=== PATIENT | male | born 1955 ===

== ENCOUNTER 2016-10-17 00:46 | Inpatient (IN) | payer MEDICARE, OTHER ==
[2016-10-17] MEDS ORDERED: Sodium Chloride 0.9% 1,000 ML IV STA (01:19)
--- NOTE | 2016-10-17 01:24 | ED PDOC ---
HPI: Abdomen Time Seen by Provider: 10/17/16 01:00 Chief Complaint (Nursing): Abdominal Pain Chief Complaint (Provider): abdominal pain History Per: Patient History/Exam Limitations: no limitations Onset/Duration Of Symptoms: Days (2) Current Symptoms Are (Timing): Still Present Location Of Pain/Discomfort: LUQ, LLQ, Other (left flank) Quality Of Discomfort: "Pain" Associated Symptoms: Constipation. denies: Fever, Chills, Nausea, Vomiting, Diarrhea Additional History Per: Patient Additional Complaint(s): 61 y/o male presents with left-sided abdominal pain x 2 days. Patient notes pain to travel to back. Patient here visiting his sister; was seen by a doctor and prescribed Cipro 500mg without improvement. Associated constipation, abdominal bloating. Denies fever, nausea/vomiting, chest pain, shortness of breath, dysuria, hematuria. Past Medical History Reviewed: Historical Data, Nursing Documentation, Vital Signs Vital Signs: Last Vital Signs Temp 98.7 F 10/17/16 01:15 Pulse 85 10/17/16 01:15 Resp 19 10/17/16 01:15 BP 149/94 H 10/17/16 01:15 Pulse Ox 98 10/17/16 05:36 - Medical History PMH: No Chronic Diseases - Family History Family History: States: Unknown Family Hx - Home Medications Home Medications: Ambulatory Orders Medication Instructions Recorded Ciprofloxacin [Cipro] 500 mg PO BID 10/17/16 - Allergies Allergies/Adverse Reactions: Allergies Allergy/AdvReac Type Severity Reaction Status Date / Time ibuprofen [From Motrin] Allergy RASH Verified 10/17/16 01:16 Review of Systems ROS Statement: Except As Marked, All Systems Reviewed And Found Negative Gastrointestinal: Positive for: Abdominal Pain Musculoskeletal: Positive for: Back Pain Physical Exam - Reviewed Nursing Documentation Reviewed: Yes Vital Signs Reviewed: Yes - Physical Exam Appears: Positive for: Well, Non-toxic, No Acute Distress Head Exam: Positive for: ATRAUMATIC, NORMAL INSPECTION, NORMOCEPHALIC Skin: Positive for: Normal Color Eye Exam: Positive for: Normal appearance ENT: Positive for: Normal ENT Inspection Cardiovascular/Chest: Positive for: Regular Rate, Rhythm Respiratory: Positive for: Normal Breath Sounds Gastrointestinal/Abdominal: Positive for: Bowel Sounds, Soft, Tenderness (luq, llq, left flank), Distended Extremity: Positive for: Normal ROM Neurologic/Psych: Positive for: Alert, Oriented - Laboratory Results Result Diagrams: 10/17/16 01:30 10/17/16 01:30 - ECG ECG: Positive for: Viewed By Me (reviewed by ED attending) ECG Rhythm: Positive for: Sinus Tachycardia (103bpm) O2 Sat by Pulse Oximetry: 98 Pulse Ox Interpretation: Normal - Radiology X-Ray: Viewed By Me X-Ray Interpretation: No Acute Disease - Progress ED Course And Treament: labs, urine, CT abd/pelvis, IV morphine, IV fluids EXAM: CT Abdomen and Pelvis With Intravenous Contrast. CLINICAL HISTORY: 61 years old, male; Pain; Abdominal pain; Localized; Left; Additional info: Left -sided abd/back pain TECHNIQUE: Axial computed tomography images of the abdomen and pelvis with intravenous contrast. This CT exam was performed using one or more of the following dose reduction techniques : automated exposure control, adjustment of the mA and/or kV according to patient size, and/ or use of iterative reconstruction technique. Coronal and sagittal reformatted images were created and reviewed. CONTRAST: 95 mL of [id number] administered intravenously. EXAM DATE/TIME: 10/17/2016 1:32 AM COMPARISON: No relevant prior studies available. FINDINGS: Lower thorax: There is possible thrombus in the right middle and lower lobe pulmonary arteries as seen on series 2 image 1. ABDOMEN: Liver: Findings consistent with fatty infiltration of the liver are identified. Hypodensities in the liver are too small to definitely characterize although statistically they most likely represent benign cysts. Gallbladder and bile ducts: Unremarkable. No calcified stones. No ductal dilation. Pancreas: Unremarkable. No mass. No ductal dilation. Spleen: Unremarkable. No splenomegaly. Adrenals: Unremarkable. No mass. Kidneys and ureters: There is a punctate calcification in the inferior left kidney. There is no hydronephrosis. Stomach and bowel: Colonic diverticula are present although there are no CT findings to suggest diverticulitis. No obstruction. Appendix: The appendix is visualized and appears normal. PELVIS: Bladder: Unremarkable. No mass. Reproductive: Unremarkable as visualized. ABDOMEN and PELVIS: Intraperitoneal space: Unremarkable. No free air. No significant fluid collection. Bones/joints: No acute fracture. No dislocation. Soft tissues: Unremarkable. Vasculature: There is no abdominal aortic aneurysm. Lymph nodes: Unremarkable. No enlarged lymph nodes. IMPRESSION: There is possible thrombus in the right middle and lower lobe pulmonary arteries. Clinical correlation is advised. If there is desire for further evaluation, a nuclear medicine VQ scan could be performed. There is a punctate calcification in the inferior left kidney. There is no hydronephrosis. On re-eval, patient still with pain left back, left flank. Denies shortness of breath, however states when he takes a deep breath it makes the pain worse. Case discussed with ED attending Dr. Krishnan, will place in observation for intractable abdominal pain. D Dimer added. Patient evaluated by Dr. Ibarra, Hospitalist on-call, for admission Disposition - Clinical Impression Clinical Impression: Intractable abdominal pain, Back pain - Patient ED Disposition Is Patient to be Admitted: Yes - Disposition Referrals: Marilyn Ornelas MD [Primary Care Provider] - Disposition Time: 05:33 Condition: FAIR - Pt Status Changed To: Hospital Disposition Of: Observation
[2016-10-17] MEDS ORDERED: Iohexol 240 (50 ml) PO ONE (01:31)
[2016-10-17 01:41] LABS: RBC URINE 1 /hpf (0-3); URINE BILIRUBIN NEGATIVE (NEGATIVE); URINE BLOOD SMALL (NEGATIVE); URINE COLOR YELLOW (YELLOW); URINE GLUCOSE (UA) NEG (Normal); URINE KETONE NEGATIVE (NEGATIVE); URINE LEUKOCYTE ESTERASE NEG Leu/uL (Negative); URINE PROTEIN NEGATIVE (NEGATIVE); URINE UROBILINOGEN 0.2-1.0 mg/dL (0.2-1.0); WBC URINE < 1 /hpf (0-5)
[2016-10-17 01:43] LABS: ALB/GLOB RATIO 1.1 (1.0-2.1); ALKALINE PHOSPHATASE 106 U/L (38-126); AST/SGOT 35 U/L (17-59); BILIRUBIN,TOTAL 0.8 mg/dl (0.2-1.3); BLOOD UREA NITROGEN 16 mg/dl (9-20); CALCIUM 9.4 mg/dL (8.4-10.2); GFR AFRICAN-AMERICAN > 60; GLUCOSE,RANDOM 106 mg/dL (75-110); TOTAL PROTEIN 8.9 G/DL (6.3-8.2)
[2016-10-17 01:44] LABS: ALT/SGPT 25 U/L (21-72)
[2016-10-17 01:47] LABS: CHLORIDE 100 mmol/L (98-107); SODIUM 140 mmol/l (132-148)
[2016-10-17 01:48] LABS: BASO # 0.1 K/uL (0.0-0.2); BASO % 0.6 % (0.0-2.0); EOS # 0.2 K/uL (0.0-0.7); EOS % 2.9 % (0.0-4.0); HEMATOCRIT 41.4 % (35.0-51.0); LYMPH # 2.5 K/uL (1.0-4.3); LYMPH % 31.1 % (20.0-40.0); MEAN CELL VOLUME 90.9 fl (80.0-94.0); MEAN CORPUSCULAR HGB CONC 34.1 g/dL (33.0-37.0); MEAN PLATELET VOLUME 8.7 fl (7.2-11.7); MONO # 0.9 K/uL (0.0-0.8); MONO % 11.6 % (0.0-10.0); NEUT # 4.3 K/uL (1.8-7.0); NEUT % 53.8 % (50.0-75.0); NRBC % 0.1 % (0.0-0.0)
[2016-10-17 01:50] LABS: CARBON DIOXIDE 24 mmol/L (22-30)
[2016-10-17] MEDS ORDERED: Sodium Chloride 0.9% 100 ML ONE (03:07)
[2016-10-17] MEDS ORDERED: Iohexol 300 100 ML IJ ONE (03:07)
[2016-10-17] MEDS ORDERED: Enoxaparin 80 mg Syringe SC STA (05:43)
--- NOTE | 2016-10-17 05:56 | CP.PCM.HP ---
History of Present Illness - History of Present Illness History of Present Illness: CC: L chest/flank pain HPI: 61 y/o male with MHx only of diverticulosis/itis who comes in with several days of L flank/back pain and some intermittent SOB. States the symptoms started acutely. Denies f/c/n/v/d. Denies cough. States that he had some LE pain recently. Never had symptoms like this before. ROS: 14 systems reviewed, negative other than HPI MHx: Diverticulosis/itis in the past SHx: Surgery for diverticulitis, R shoulder surgery Allergies: Ibuprofen Medications: as per med rec Family Hx: Reviewed, none patient can recount Social Hx: Lives with family, no tobacco, occasional EtOH Present on Admission - Present on Admission Any Indicators Present on Admission: No Past Patient History - Past Social History Smoking Status: Unknown If Ever Smoked - PSYCHIATRIC Hx Substance Use: No Meds Allergies/Adverse Reactions: Allergies Allergy/AdvReac Type Severity Reaction Status Date / Time ibuprofen [From Motrin] Allergy RASH Verified 10/17/16 01:16 Physical Exam - Constitutional Appears: No Acute Distress - Head Exam Head Exam: ATRAUMATIC, NORMOCEPHALIC - Eye Exam Eye Exam: EOMI, PERRL - ENT Exam ENT Exam: Mucous Membranes Moist - Neck Exam Neck exam: Positive for: Full Rom - Respiratory Exam Respiratory Exam: Clear to Auscultation Bilateral, NORMAL BREATHING PATTERN - Cardiovascular Exam Cardiovascular Exam: Tachycardia - GI/Abdominal Exam GI & Abdominal Exam: Normal Bowel Sounds, Soft - Extremities Exam Extremities exam: Positive for: full ROM, normal inspection - Neurological Exam Neurological exam: Alert, CN II-XII Intact, Oriented x3 - Psychiatric Exam Psychiatric exam: Normal Affect, Normal Mood - Skin Skin Exam: Dry, Warm Results - Vital Signs Recent Vital Signs: Last Vital Signs Temp 98.2 F 10/17/16 05:40 Pulse 103 H 10/17/16 05:40 Resp 21 10/17/16 05:40 BP 147/94 H 10/17/16 05:40 Pulse Ox 98 10/17/16 05:40 - Labs Result Diagrams: 10/17/16 01:30 10/17/16 01:30 Labs: Laboratory Results - last 24 hr 10/17/16 10/17/16 10/17/16 01:30 04:34 04:47 WBC 8.0 RBC 4.56 Hgb 14.1 Hct 41.4 MCV 90.9 MCH 31.0 MCHC 34.1 RDW 14.0 Plt Count 193 MPV 8.7 Neut % (Auto) 53.8 Lymph % (Auto) 31.1 Alexander % (Auto) 11.6 H Eos % (Auto) 2.9 Baso % (Auto) 0.6 Neut # 4.3 Lymph # 2.5 Alexander # 0.9 H Eos # 0.2 Baso # 0.1 D-Dimer, Quantitative 5.33 H Sodium 140 Potassium 5.0 Chloride 100 Carbon Dioxide 24 Anion Gap 21 H BUN 16 Creatinine 0.9 Est GFR ( Amer) > 60 Est GFR (Non-Af Amer) > 60 Random Glucose 106 Calcium 9.4 Total Bilirubin 0.8 AST 35 ALT 25 Alkaline Phosphatase 106 Total Protein 8.9 H Albumin 4.6 Globulin 4.3 H Albumin/Globulin Ratio 1.1 Lipase 175 Urine Color Yellow Urine Clarity Clear Urine pH 6.0 Ur Specific [place] 1.014 Urine Protein Negative Urine Glucose (UA) Neg Urine Ketones Negative Urine Blood Small Urine Nitrate Negative Urine Bilirubin Negative Urine Urobilinogen 0.2-1.0 Ur Leukocyte Esterase Neg Urine RBC (Auto) 1 Urine Microscopic WBC < 1 - EKG Data EKG comments: Pending - Imaging and Cardiology CT scan - chest Status: Report reviewed by me (Possible L sided PE) Assessment & Plan (1) Back pain Assessment and Plan: 61 y/o male c/o chest/flank pain and SOB with ? of PE on CT and elevated d dimer. -Obs tele -1 dose therapeutic lovenox stat -Pain control -VQ scan in AM Status: Acute (2) Chest pain Status: Acute (3) DVT prophylaxis Status: Acute
--- NOTE | 2016-10-17 10:03 | CP.PCM.PN ---
Subjective - Date & Time of Evaluation Date of Evaluation: 10/17/16 Time of Evaluation: 09:40 - Subjective Subjective: Hospitalist Progress Note (Patient seen at 9:40 AM 10/17/16 ER Bed #17 with the help of INDEM[employer] Interpretor Grace Ramirez) 61 year old male who came into the ER for complaints of several days of Left Flank/Left Back Pain with intermittent SOB that was acute in onset. CT Abdomen/ Pelvis showed possible thrombus in the Right Middle and Right Lower Lobe Pulmonary Arteries, Left Kidney Punctate Lesion, NO hydroneprhosis. D-Dimer was elevated. Patient was given one dose of Lovenox 80 mg SQ at 6 AM. Awaiting performance of V/Q Scan. ROS: pain in left upper to mid back with deep respirations. NO chest pain, NO palpitations, NO SOB/Cough/Wheezing, NO dysyphagia/odynophagia, NO abdominal pain, NO n/v/d/c, NO burning/pain with urination, NO lightheadedness/dizziness, NO headaches, NO new changes in vision/eye pain, NO new changes in hearing/ear pain, NO paresthesias, NO edema HEENT: NCA, EOMI, NO cervical lymphadenopathy, NO thyromegaly, NO pharyngeal erythema/exudate, Oral mucosa and Nasal Turbinates are moist Cardio: NS1 and NS2, NO M/R/G Respiratory: CTA B/L, NO R/R/W pain the left upper and mid back with deep respirations GI: BSx 4, Soft, NT, ND, NO HSM, NO guarding/rebound tenderness Ext: NO edema, Capillary Refill is 2 seconds, Pulses are strong and equal Neuro: CN II through XII are grossly intact Assessment and Plan: 1). Possible PE Please see details in HPI above Awaiting V/Q Scan performance Objective - Vital Signs/Intake and Output Vital Signs (last 24 hours): Temp Pulse Resp BP Pulse Ox 99.0 F 111 H 22 154/96 H 94 L 10/17/16 07:29 10/17/16 07:29 10/17/16 07:29 10/17/16 07:29 10/17/16 07:29 - Medications Medications: Current Medications Morphine Sulfate (Morphine) 2 mg IVP Q6 PRN PRN Reason: Pain, moderate (4-7) Morphine Sulfate (Morphine) 4 mg IVP Q6 PRN PRN Reason: Pain, severe (8-10) Oxycodone/Acetaminophen (Percocet 5/325 Mg Tab) 1 tab PO Q4 PRN PRN Reason: Pain, Mild (1-3) Stop: 10/20/16 05:38
--- NOTE | 2016-10-17 10:48 | CT ---
PROCEDURE: CT Abdomen and Pelvis with contrast HISTORY: left-sided abd/back pain COMPARISON: None. TECHNIQUE: Contrast dose: 95 cc of Omnipaque 300 Radiation dose: Total exam DLP = 808.3 mGy-cm. FINDINGS: LOWER THORAX: There are multiple filling defects in the bilateral lower lobe pulmonary arteries highly suspicious for pulmonary emboli. Patchy opacities and ground-glass opacity seen at the lower portion of the lungs bilaterally. No evidence of pleural effusion. The heart is normal in size. Small hiatus hernia seen. LIVER: The liver is mildly enlarged. There is 9 millimeter low-attenuation nonenhancing lesion at the left liver lobe. There is also th subcentimeter low-attenuation lesion at the inferior aspect of the right liver lobe. Both lesions may represent benign cyst. The portal vein is patent. GALLBLADDER AND BILE DUCTS: Unremarkable. PANCREAS: Unremarkable. No gross lesion or ductal dilatation. SPLEEN: Unremarkable. ADRENALS: Unremarkable. No mass. KIDNEYS AND URETERS: Suspicious for punctate calcification in the right kidney may represent small nonobstructing renal calculi. No evidence of hydronephrosis. VASCULATURE: Unremarkable. No aortic aneurysm. BOWEL: Few scattered colonic diverticulosis are seen without evidence of diverticulitis. No evidence of bowel obstruction. APPENDIX: No evidence of appendicitis. PERITONEUM: Unremarkable. No free fluid. No free air. LYMPH NODES: Unremarkable. No enlarged lymph nodes. BLADDER: Unremarkable. REPRODUCTIVE: Moderately enlarged prostate. BONES: No acute fracture. OTHER FINDINGS: None. IMPRESSION: Findings highly suspicious for pulmonary emboli. Multiple filling defects at the bilateral lower lobes pulmonary arteries. If indicated further assessment by dedicated CTA of the chest is suggested. No CT evidence of cholecystitis pancreatitis or appendicitis. Suspicious for nonobstructing small left renal calculi. No evidence of hydronephrosis or hydroureter. Nonspecific 2 small sub centimeter low-attenuation lesions in the liver. Colonic diverticulosis without evidence of diverticulitis. Moderately enlarged prostate. Preliminary report was submitted by [facility].
--- NOTE | 2016-10-17 10:49 | CP.PCM.HP ---
Past Patient History - Past Social History Smoking Status: Unknown If Ever Smoked - GASTROINTESTINAL Hx Diverticulitis: Yes - PSYCHIATRIC Hx Substance Use: No - SURGICAL HISTORY Hx Surgeries: Yes Meds Allergies/Adverse Reactions: Allergies Allergy/AdvReac Type Severity Reaction Status Date / Time ibuprofen [From Motrin] Allergy RASH Verified 10/17/16 01:16 Physical Exam - Constitutional Appears: Well - Head Exam Head Exam: ATRAUMATIC, NORMAL INSPECTION, NORMOCEPHALIC - Eye Exam Eye Exam: EOMI, Normal appearance, PERRL Pupil Exam: NORMAL ACCOMODATION, PERRL - ENT Exam ENT Exam: Mucous Membranes Moist, Normal Exam - Neck Exam Neck exam: Positive for: Normal Inspection - Respiratory Exam Respiratory Exam: Decreased Breath Sounds - Cardiovascular Exam Cardiovascular Exam: REGULAR RHYTHM, +S1, +S2 - GI/Abdominal Exam GI & Abdominal Exam: Diminished Bowel Sounds, Soft - Rectal Exam Rectal Exam: Deferred Results - Vital Signs Recent Vital Signs: Last Vital Signs Temp 99.0 F 10/17/16 07:29 Pulse 111 H 10/17/16 07:29 Resp 22 10/17/16 07:29 BP 154/96 H 10/17/16 07:29 Pulse Ox 94 L 10/17/16 07:29 - Labs Result Diagrams: 10/17/16 01:30 10/17/16 01:30 Labs: Laboratory Results - last 24 hr 10/17/16 04:47 Lipase 175
--- NOTE | 2016-10-17 13:19 | RAD ---
HISTORY: admit COMPARISON: No prior. FINDINGS: LUNGS: Small opacities at the lung bases left more than right may represent atelectasis. Otherwise the lungs are clear. PLEURA: No significant pleural effusion identified, no pneumothorax apparent. CARDIOVASCULAR: Normal. OSSEOUS STRUCTURES: No significant abnormalities. VISUALIZED UPPER ABDOMEN: Normal. OTHER FINDINGS: None. IMPRESSION: Small bibasilar opacities suspicious for atelectasis. Otherwise no evidence of acute pulmonary disease.
--- NOTE | 2016-10-17 13:27 | NM ---
COMPARISON: Comparison is made to the previous same-day chest x-ray TECHNIQUE: 45.2 mCi technetium 99-m DTPA aerosol 6.1 mCI technetium 99-m MAA administered intravenously. FINDINGS: VENTILATION COMPONENT: Heterogeneous ventilation seen in both lungs. PERFUSION COMPONENT: There are segmental and subsegmental mismatching perfusion defect in the lower lobes particularly. IMPRESSION: Intermediateprobability ventilation perfusion scan for pulmonary embolism. Further assessment by CTA of the chest is suggested.
--- NOTE | 2016-10-17 14:09 | CARD ---
APPROVED REPORT EKG Measurement Heart [id number] <Conclusion> Sinus tachycardia Left axis deviation Cannot rule out Anterior infarct, age undetermined Abnormal ECG
[2016-10-17] MEDS: Enoxaparin 80 mg Syringe SC SCH (18:00)
--- NOTE | 2016-10-17 18:24 | US ---
PROCEDURE: Bilateral lower extremity venous duplex Doppler. HISTORY: Likely PE. Rule Out DVT COMPARISON: None available. TECHNIQUE: Bilateral common femoral, superficial femoral, popliteal and posterior tibial veins were evaluated. Flow was assessed with color Doppler, compressibility, assessment of phasic flow and augmentation response. FINDINGS: COMMON FEMORAL VEIN: Right CFV: Unremarkable. Left CFV: Unremarkable. SUPERFICIAL FEMORAL VEIN: Right SFV: Unremarkable. Left SFV: Unremarkable. POPLITEAL VEIN: Right Popliteal: Noncompressible right popliteal vein with thrombus identified, extending distally to involve the posterior tibial vein. Left Popliteal: Unremarkable. POSTERIOR TIBIAL VEIN: Right PTV: Unremarkable. Left PTV: Unremarkable. OTHER FINDINGS: None. IMPRESSION: Nonocclusive Deep vein thrombosis evident in the right popliteal and posterior tibial veins. No evidence of more proximal or distal acute DVT.
[2016-10-17 20:33] VITALS: RESP 18
[2016-10-17] MEDS: Oxycodone/Acetaminophen 5/325 mg Tab PO PRN (21:18)
[2016-10-18] MEDS ORDERED: Pneumococcal 23-Valent Vaccine IM ONE (06:00)
[2016-10-18] MEDS: Enoxaparin 80 mg Syringe SC SCH ×2 (06:03→17:55)
[2016-10-18 07:45] LABS: BASO % 0.5 % (0.0-2.0); EOS # 0.3 K/uL (0.0-0.7); EOS % 4.2 % (0.0-4.0); HEMATOCRIT 40.1 % (35.0-51.0); LYMPH # 1.9 K/uL (1.0-4.3); MEAN CELL VOLUME 91.2 fl (80.0-94.0); MEAN CORPUSCULAR HEMOGLOBIN 30.6 pg (27.0-31.0); MEAN CORPUSCULAR HGB CONC 33.6 g/dL (33.0-37.0); MEAN PLATELET VOLUME 8.7 fl (7.2-11.7); MONO # 0.6 K/uL (0.0-0.8); MONO % 10.4 % (0.0-10.0); NEUT # 3.4 K/uL (1.8-7.0); NEUT % 54.9 % (50.0-75.0); RED CELL DISTRIBUTION WIDTH 13.9 % (11.5-14.5); WHITE BLOOD COUNT 6.2 K/uL (4.8-10.8)
[2016-10-18 08:06] LABS: BLOOD UREA NITROGEN 12 mg/dl (9-20); CALCIUM 9.4 mg/dL (8.4-10.2); CARBON DIOXIDE 30 mmol/L (22-30); CHLORIDE 99 mmol/L (98-107); GFR AFRICAN-AMERICAN > 60; GLUCOSE,RANDOM 96 mg/dL (75-110); POTASSIUM 5.1 MMOL/L (3.6-5.0); SODIUM 141 mmol/l (132-148)
[2016-10-18] MEDS ORDERED: Sodium Chloride 0.9% 50 ML IV ONE (10:23)
[2016-10-18] MEDS ORDERED: Iohexol 300 100 ML IJ ONE (10:23)
--- NOTE | 2016-10-18 11:49 | CT ---
PROCEDURE: CT Chest with contrast (Pulmonary Angiogram) HISTORY: Intermediate Risk PE on V/Q Scan.PE on CT Abd/Pelv COMPARISON: None available. TECHNIQUE: Axial computed tomography images were obtained of the chest in the pulmonary arterial phase of enhancement. Coronal and sagittal reformatted images were created and reviewed. Intravenous contrast dose: 95 mL of Omnipaque 300 Radiation dose: Total exam DLP = 397.35 mGy-cm. FINDINGS: PULMONARY ARTERIES: There are multiple filling defects in the pulmonary arteries consistent with pulmonary emboli. The largest embolus is seen at the main branches of the right pulmonary artery. The opacification of the pulmonary artery is suboptimal in this study. AORTA: No acute findings. No thoracic aortic aneurysm. LUNGS: There are small airspace opacity seen at the lingula and bilateral lower lobes may represent atelectasis or pneumonia. PLEURAL SPACES: There is a trace left pleural effusion. HEART: Unremarkable. No cardiomegaly. No significant pericardial effusion. LYMPH NODES: No lymphadenopathy. BONES, CHEST WALL: Unremarkable. No fracture or destructive lesion OTHER FINDINGS: Hepatic steatosis is noted. IMPRESSION: Bilateral pulmonary emboli more prominent on the right side. Bilateral lower lobes small airspace opacities may represent atelectasis or less likely pneumonia. Trace left pleural effusion. Hepatic steatosis. CRITICAL VALUE: The important findings were discussed with Milena the nurse taking care of the patient at 11:40 a.m. on 10/18/2016.
--- NOTE | 2016-10-18 14:25 | CP.PCM.PN ---
Subjective - Date & Time of Evaluation Date of Evaluation: 10/18/16 Time of Evaluation: 14:00 - Subjective Subjective: Hospitalist Progress Note (Patient was seen and examined at 2:00 PM with Inspector Set Up And Lay OutClerk West who translated in Lithuanian) 61 year old male who came into the ER for complaints of several days of Left Flank/Left Back Pain with intermittent SOB that was acute in onset. CT Abdomen/ Pelvis showed possible thrombus in the Right Middle and Right Lower Lobe Pulmonary Arteries, Left Kidney Punctate Lesion, NO hydroneprhosis. D-Dimer was elevated. V/Q Scan was indeterminate. Bilateral Venous Dopplers of Legs showed Right Popliteal and Right Posterior Tibial Vein DVTs. CT Angio Chest could not be performed till 10/18/16 due to contrast burden and this showed bilateral pulmonary emboli (right greater than the left), trace left pleural effusion, hepatic steatosis, and bilateral lower lobe atelectasis. ROS: pain in left upper to mid back with deep respirations. NO chest pain, NO palpitations, NO SOB/Cough/Wheezing, NO dysyphagia/odynophagia, NO abdominal pain, NO n/v/d/(did not move bowels today), NO burning/pain with urination, NO lightheadedness/dizziness, NO headaches, NO new changes in vision/eye pain, NO new changes in hearing/ear pain, NO paresthesias, NO edema. (+) Blood in urine ( when examining urine which he saved there was a a tiny strand of light pink material floating on top of light yellow urine and there was no gross blood) HEENT: NCA, EOMI, NO cervical lymphadenopathy, NO thyromegaly, NO pharyngeal erythema/exudate, Oral mucosa and Nasal Turbinates are moist Cardio: NS1 and NS2, NO M/R/G Respiratory: CTA B/L, NO R/R/W pain the left upper and mid back with deep respirations GI: BSx 4, Soft, NT, ND, NO HSM, NO guarding/rebound tenderness Ext: NO edema, Capillary Refill is 2 seconds, Pulses are strong and equal Neuro: CN II through XII are grossly intact Assessment and Plan: 1). Bilateral Pulmonary Emboli Please see details in HPI above NO family history of hypercoagulable conditions as per Sister who was present at time of exam. Patient has no other history other than episode of Diverticulosis in 2014 treated at [facility] Lovenox 80 mg SQ Q12H (6 AM and 6 PM) F/U Recruitment Director Dr. Mariscal recommendations for oral anticoagulation (Eliquis ?) F/U 2D Echocardiogram to see if there is any strain on the heart 2). Right Leg DVTs Please see details in HPI above Please Assessment and Plan #1 above 3). Hepatic Steatosis As seen on CT Angiogram Chest F/U Dietary Low Fat Diet Consult 4). Prophylactic Measures Protonix 40 mg PO 1x/day On Lovenox Colace 100 mg PO 2x/day Percocet 5/325 mg PO Q4H PRN Pain 1-3 Morphine 2 mg IV Q4H PRN Pain 4-7 Morphine 4 mg IV Q4H PRN Pain 8-[address] Angio Chest, B/L Venous Dopplers Legs, and the need for anticoagulation (and the dangers of bleeding) were explained to patient and sister. Objective - Vital Signs/Intake and Output Vital Signs (last 24 hours): Temp Pulse Resp BP Pulse Ox 98.3 F 74 18 148/87 98 10/18/16 12:01 10/18/16 12:01 10/18/16 12:01 10/18/16 12:01 10/18/16 12:01 - Medications Medications: Current Medications Docusate Sodium (Colace) 100 mg PO BID [facility] Last Admin: 10/18/16 08:29 Dose: 100 mg Enoxaparin Sodium (Lovenox) 80 mg SC Q12@0600,1800 WILFRIDO PRN Reason: Protocol Last Admin: 10/18/16 06:03 Dose: 80 mg Morphine Sulfate (Morphine) 2 mg IVP Q6 PRN PRN Reason: Pain, moderate (4-7) Last Admin: 10/17/16 15:13 Dose: 2 mg Morphine Sulfate (Morphine) 4 mg IVP Q6 PRN PRN Reason: Pain, severe (8-10) Oxycodone/Acetaminophen (Percocet 5/325 Mg Tab) 1 tab PO Q4 PRN PRN Reason: Pain, Mild (1-3) Stop: 10/20/16 05:38 Last Admin: 10/17/16 21:18 Dose: 1 tab
[2016-10-18] MEDS: Pantoprazole 40 mg EC Tab PO SCH (17:54)
[2016-10-18] MEDS: Oxycodone/Acetaminophen 5/325 mg Tab PO PRN (20:44)
--- NOTE | 2016-10-18 21:49 | CP.PCM.CON ---
History of Present Illness - History of Present Illness History of Present Illness: 61 year old male with a history of diverticulosis, admitted with chest pain and shortness of breath, found to have B/L pulmonary emboli and right lower extremity DVT. The patient denies a history of abnormal bleeding and clotting before. He reports to leading an active lifestyle and is not sedentary. He denies trauma to his extremities. He is currently feeling better since being started on therapeutic anticoagulation. Past medical history: Diverticulosis Past surgical history: Eye surgery, right shoulder surgery Family history: Denies hematologic and oncologic problems Social history: Denies tobacco, alcohol, and illicit drug use. Works with asbestos. Allergies: Ibuprofen Review of systems: All remaining review of systems including HEENT, cardiovascular, respiratory, gastrointestinal, genitourinary, musculoskeletal, dermatologic, neurologic, and psychiatric are negative unless mentioned in the HPI. Past Patient History - Past Medical History & Family History Past Medical History?: Yes - Past Social History Smoking Status: Never Smoked - CARDIAC Hx Cardiac Disorders: No - PULMONARY Hx Respiratory Disorders: No - NEUROLOGICAL Hx Neurological Disorder: No - HEENT Hx HEENT Problems: No - RENAL Hx Chronic Kidney Disease: No - ENDOCRINE/METABOLIC Hx Endocrine Disorders: No - HEMATOLOGICAL/ONCOLOGICAL Hx Blood Disorders: No - INTEGUMENTARY Hx Dermatological Problems: No - MUSCULOSKELETAL/RHEUMATOLOGICAL Hx Musculoskeletal Disorders: No - GASTROINTESTINAL Hx Diverticulitis: Yes - GENITOURINARY/GYNECOLOGICAL Hx Genitourinary Disorders: No - PSYCHIATRIC Hx Psychophysiologic Disorder: No - SURGICAL HISTORY Hx Surgeries: Yes - ANESTHESIA Hx Anesthesia: No Meds Allergies/Adverse Reactions: Allergies Allergy/AdvReac Type Severity Reaction Status Date / Time ibuprofen [From Motrin] Allergy RASH Verified 10/17/16 01:16 - Medications Medications: Current Medications Docusate Sodium (Colace) 100 mg PO BID [facility] Last Admin: 10/18/16 17:56 Dose: 100 mg Enoxaparin Sodium (Lovenox) 80 mg SC Q12@0600,1800 [facility] PRN Reason: Protocol Last Admin: 10/18/16 17:55 Dose: 80 mg Morphine Sulfate (Morphine) 2 mg IVP Q6 PRN PRN Reason: Pain, moderate (4-7) Last Admin: 10/17/16 15:13 Dose: 2 mg Morphine Sulfate (Morphine) 4 mg IVP Q6 PRN PRN Reason: Pain, severe (8-10) Oxycodone/Acetaminophen (Percocet 5/325 Mg Tab) 1 tab PO Q4 PRN PRN Reason: Pain, Mild (1-3) Stop: 10/20/16 05:38 Last Admin: 10/18/16 20:44 Dose: 1 tab Pantoprazole Sodium (Protonix Ec Tab) 40 mg PO DAILY [facility] Last Admin: 10/18/16 17:54 Dose: 40 mg Physical Exam - Head Exam Head Exam: ATRAUMATIC - Eye Exam Eye Exam: Normal appearance - ENT Exam ENT Exam: Mucous Membranes Dry - Respiratory Exam Respiratory Exam: NORMAL BREATHING PATTERN - Cardiovascular Exam Cardiovascular Exam: +S1, +S2 - GI/Abdominal Exam GI & Abdominal Exam: Normal Bowel Sounds - Extremities Exam Extremities exam: Positive for: pedal edema - Neurological Exam Neurological exam: Oriented x3 - Psychiatric Exam Psychiatric exam: Normal Affect, Normal Mood - Skin Skin Exam: Warm Results - Vital Signs Recent Vital Signs: Last Vital Signs Temp 98.4 F 10/18/16 19:47 Pulse 96 H 10/18/16 19:47 Resp 18 10/18/16 19:47 BP 137/92 H 10/18/16 19:47 Pulse Ox 97 10/18/16 19:47 - Labs Result Diagrams: 10/18/16 05:35 10/18/16 05:35 Assessment & Plan (1) Pulmonary embolism Assessment and Plan: unprovoked will send factor V leiden, prothrombin gene mutation, antiphospholipid Ab panel protein C+S and antithrombin III can be checked as an outpatient agree with therapeutic anticoagulation discussed different anticoagulation therapies available, as well as the side effect profile of each. Pt is agreeable to [place]. Status: Acute (2) DVT (deep venous thrombosis) Assessment and Plan: unprovoked right popliteal and post. tibial therapeutic anticoagulation inherited thrombophilia w/u sent Thank you for this interesting consult. Status: Acute
[2016-10-19] MEDS: Enoxaparin 80 mg Syringe SC SCH (05:50)
[2016-10-19 07:30] LABS: BLOOD UREA NITROGEN 13 mg/dl (9-20); CALCIUM 9.6 mg/dL (8.4-10.2); CARBON DIOXIDE 28 mmol/L (22-30); CHLORIDE 98 mmol/L (98-107); GFR AFRICAN-AMERICAN > 60; GLUCOSE,RANDOM 100 mg/dL (75-110); POTASSIUM 4.9 MMOL/L (3.6-5.0); SODIUM 142 mmol/l (132-148)
[2016-10-19 07:32] LABS: PARTIAL THROMBOPLASTIN TIME 29.4 SECONDS (23.3-32.5)
[2016-10-19 07:48] LABS: BASO % 0.3 % (0.0-2.0); EOS # 0.3 K/uL (0.0-0.7); HEMATOCRIT 41.5 % (35.0-51.0); LYMPH # 1.7 K/uL (1.0-4.3); LYMPH % 21.5 % (20.0-40.0); MEAN CELL VOLUME 91.4 fl (80.0-94.0); MEAN CORPUSCULAR HEMOGLOBIN 30.5 pg (27.0-31.0); MEAN CORPUSCULAR HGB CONC 33.3 g/dL (33.0-37.0); MEAN PLATELET VOLUME 8.7 fl (7.2-11.7); MONO # 0.7 K/uL (0.0-0.8); MONO % 9.1 % (0.0-10.0); NEUT # 5.2 K/uL (1.8-7.0); NEUT % 65.1 % (50.0-75.0); NRBC % 0.1 % (0.0-0.0); RED CELL DISTRIBUTION WIDTH 13.9 % (11.5-14.5); WHITE BLOOD COUNT 7.9 K/uL (4.8-10.8)
[2016-10-19] MEDS: Pantoprazole 40 mg EC Tab PO SCH (09:04)
--- NOTE | 2016-10-19 10:59 | CP.PCM.DIS ---
Provider - Provider Date of Admission: 10/18/16 05:46 Attending physician: Chilo Ibarra MD Primary care physician: Dea Ornelas MD Consults: Hematology: DR Mariscal Time Spent in preparation of Discharge (in minutes): 35 Diagnosis - Discharge Diagnosis (1) Pulmonary embolism Status: Acute (2) DVT (deep venous thrombosis) Status: Acute Hospital Course - Lab Results Lab Results: Most Recent Lab Values WBC 7.9 K/uL (4.8-10.8) 10/19/16 05:45 RBC 4.54 Mil/uL (4.40-5.90) 10/19/16 05:45 Hgb 13.8 g/dL (12.0-18.0) 10/19/16 05:45 Hct 41.5 % (35.0-51.0) 10/19/16 05:45 MCV 91.4 fl (80.0-94.0) 10/19/16 05:45 MCH 30.5 pg (27.0-31.0) 10/19/16 05:45 MCHC 33.3 g/dL (33.0-37.0) 10/19/16 05:45 RDW 13.9 % (11.5-14.5) 10/19/16 05:45 Plt Count 212 K/uL (130-400) 10/19/16 05:45 MPV 8.7 fl (7.2-11.7) 10/19/16 05:45 Neut % (Auto) 65.1 % (50.0-75.0) 10/19/16 05:45 Lymph % (Auto) 21.5 % (20.0-40.0) 10/19/16 05:45 [place] % (Auto) 9.1 % (0.0-10.0) 10/19/16 05:45 Eos % (Auto) 4.0 % (0.0-4.0) 10/19/16 05:45 Baso % (Auto) 0.3 % (0.0-2.0) 10/19/16 05:45 Neut # 5.2 K/uL (1.8-7.0) 10/19/16 05:45 Lymph # 1.7 K/uL (1.0-4.3) 10/19/16 05:45 [place] # 0.7 K/uL (0.0-0.8) 10/19/16 05:45 Eos # 0.3 K/uL (0.0-0.7) 10/19/16 05:45 Baso # 0.0 K/uL (0.0-0.2) 10/19/16 05:45 PT 10.7 SECONDS (9.6-11.2) 10/19/16 05:45 INR 1.03 (0.92-1.08) 10/19/16 05:45 APTT 29.4 SECONDS (23.3-32.5) 10/19/16 05:45 D-Dimer, Quantitative 5.33 mg/L FEU (0-0.50) H 10/17/16 04:34 Sodium 142 mmol/l (132-148) 10/19/16 05:45 Potassium 4.9 MMOL/L (3.6-5.0) 10/19/16 05:45 Chloride 98 mmol/L (98-107) 10/19/16 05:45 Carbon Dioxide 28 mmol/L (22-30) 10/19/16 05:45 Anion Gap 20 (10-20) 10/19/16 05:45 BUN 13 mg/dl (9-20) 10/19/16 05:45 Creatinine 0.9 mg/dL (0.8-1.5) 10/19/16 05:45 Est GFR ( Amer) > 60 10/19/16 05:45 Est GFR (Non-Af Amer) > 60 10/19/16 05:45 Random Glucose 100 mg/dL (75-110) 10/19/16 05:45 Calcium 9.6 mg/dL (8.4-10.2) 10/19/16 05:45 Total Bilirubin 0.8 mg/dl (0.2-1.3) 10/17/16 01:30 AST 35 U/L (17-59) 10/17/16 01:30 ALT 25 U/L (21-72) 10/17/16 01:30 Alkaline Phosphatase 106 U/L (38-126) 10/17/16 01:30 Total Protein 8.9 G/DL (6.3-8.2) H 10/17/16 01:30 Albumin 4.6 g/dL (3.5-5.0) 10/17/16 01:30 Globulin 4.3 gm/dL (2.2-3.9) H 10/17/16 01:30 Albumin/Globulin Ratio 1.1 (1.0-2.1) 10/17/16 01:30 Lipase 175 U/L (23-300) 10/17/16 04:47 Urine Color Yellow (YELLOW) 10/17/16 01:30 Urine Clarity Clear (Clear) 10/17/16 01:30 Urine pH 6.0 (5.0-8.0) 10/17/16 01:30 Ur Specific [place] 1.014 (1.003-1.030) 10/17/16 01:30 Urine Protein Negative mg/dL (NEGATIVE) 10/17/16 01:30 Urine Glucose (UA) Neg mg/dL (Normal) 10/17/16 01:30 Urine Ketones Negative mg/dL (NEGATIVE) 10/17/16 01:30 Urine Blood Small (NEGATIVE) 10/17/16 01:30 Urine Nitrate Negative (NEGATIVE) 10/17/16 01:30 Urine Bilirubin Negative (NEGATIVE) 10/17/16 01:30 Urine Urobilinogen 0.2-1.0 mg/dL (0.2-1.0) 10/17/16 01:30 Ur Leukocyte Esterase Neg [place]/uL (Negative) 10/17/16 01:30 Urine RBC (Auto) 1 /hpf (0-3) 10/17/16 01:30 Urine Microscopic WBC < 1 /hpf (0-5) 10/17/16 01:30 - Hospital Course Hospital Course: 61 year old male who came into the ER for complaints of several days of Left Flank/Left Back Pain with intermittent SOB that was acute in onset. CT Abdomen/ Pelvis showed possible thrombus in the Right Middle and Right Lower Lobe Pulmonary Arteries, Left Kidney Punctate Lesion, NO hydroneprhosis. D-Dimer was elevated. V/Q Scan was indeterminate. Bilateral Venous Dopplers of Legs showed Right Popliteal and Right Posterior Tibial Vein DVTs. CT Angio Chest could not be performed till 10/18/16 due to contrast burden and this showed bilateral pulmonary emboli (right greater than the left), trace left pleural effusion, hepatic steatosis, and bilateral lower lobe atelectasis. 1). Bilateral Pulmonary Emboli CTA of Pulm : Bilat PE NO family history of hypercoagulable conditions . Patient has no other history other than episode of Diverticulosis in 2013 treated at [facility] Lovenox 80 mg SQ Q12H (6 AM and 6 PM)- will d/c pt on Eliquis [employer] Faculty Member Dr. Mariscal consulted ECHO: normal 2). Right Leg DVTs as above 3). Hepatic Steatosis As seen on CT Angiogram Chest Low Fat Diet Consult 4). Prophylactic Measures Protonix 40 mg PO 1x/day Colace 100 mg PO 2x/day Percocet 5/325 mg PO Q4H PRN Pain 1-3 Morphine 2 mg IV Q4H PRN Pain 4-7 Morphine 4 mg IV Q4H PRN Pain 8-[address] Angio Chest, B/L Venous Dopplers LE, Echo and the need for anticoagulation (and the dangers of bleeding) were explained to patient Discharge Exam - Head Exam Head Exam: ATRAUMATIC, NORMAL INSPECTION, NORMOCEPHALIC - Eye Exam Eye Exam: EOMI, Normal appearance, PERRL Pupil Exam: NORMAL ACCOMODATION - ENT Exam ENT Exam: Mucous Membranes Moist, Normal External Ear Exam - Neck Exam Neck exam: Full Rom - Respiratory Exam Respiratory Exam: NORMAL BREATHING PATTERN. absent: Respiratory Distress - Cardiovascular Exam Cardiovascular Exam: REGULAR RHYTHM, +S1, +S2 - GI/Abdominal Exam GI & Abdominal Exam: Normal Bowel Sounds, Soft. absent: Tenderness - Extremities Exam Extremities exam: full ROM, normal capillary refill, pedal pulses present - Back Exam Back exam: FULL ROM. absent: CVA tenderness (L), CVA tenderness (R), paraspinal tenderness - Neurological Exam Neurological exam: Alert, CN II-XII Intact, Oriented x3, Reflexes Normal - Psychiatric Exam Psychiatric exam: Normal Affect, Normal Mood - Skin Skin Exam: Dry, Intact, Normal Color, Warm Discharge Plan - Discharge Medications Prescriptions: Apixaban [Eliquis] 5 mg PO BID #[id number] tab - Follow Up Plan Condition: GOOD Disposition: HOME/ ROUTINE Instructions: Pulmonary Embolism (DC), Deep Venous Thrombosis (DC) Additional Instructions: ff up with Dr Davey christina for further Hypercoag work up and mgt of PE/DVT, ff up pending labs with him ff up with PMD [place] Referrals: Jose L Mariscal MD [Staff Provider] - Marilyn Ornelas MD [Primary Care Provider] - Clinical Quality Measures - CQM - VTE Did patient receive overlap therapy during hosptialization?: No If no, please select a reason why?: Use of Anticoagulants Medical Reason for Overlap Therapy during Hospitalization: DVT/PE Is patient being discharged on overlap therapy?: No If no, please select a reason why:: Use of Anticoagulants
--- NOTE | 2016-10-19 12:02 | CARD ---
APPROVED REPORT EXAM: Two-dimensional and M-mode echocardiogram with Doppler and color Doppler. Other Information Quality : GoodRhythm : NSR INDICATION Pulmonary Embolism 2D DIMENSIONS IVSd1.04 (0.7-1.1cm)LVDd3.97 (3.9-5.9cm) LVOT Diameter1.98 (1.8-2.4cm)PWd0.70 (0.7-1.1cm) IVSs1.25 (0.8-1.2cm)LVDs2.46 (2.5-4.0cm) FS (%) 38.0 %PWs1.13 (0.8-1.2cm) M-Mode DIMENSIONS Left Atrium (MM)3.69 (2.5-4.0cm)IVSd1.21 (0.7-1.1cm) Aortic Root3.01 (2.2-3.7cm)LVDd4.58 (4.0-5.6cm) Aortic Cusp Exc.2.01 (1.5-2.0cm)PWd1.10 (0.7-1.1cm) IVSs1.27 cmFS (%) 28 % LVDs3.28 (2.0-3.8cm)PWs1.35 cm Mitral Valve MV E Gzqzwwou18.2cm/sMV DECEL [id number] A Hqdvvtba31.6cm/s MV [id number]/A ratio0.8MVA (PHT)2.62cm2 TDI Lateral E' Peak V7.74cm/sMedial E' Peak V4.40cm/sE/Lateral E'7.5 E/Medial E'13.2 Pulmonary Valve PV Peak Umjstyvu278.9cm/s LEFT VENTRICLE The left ventricle is normal size. There is normal left ventricular wall thickness. The left ventricular function is normal. The left ventricular ejection fraction is within the normal range. The Ejection Fraction is 55-60%. There is normal LV segmental wall motion. Transmitral Doppler flow pattern is Grade I-abnormal relaxation pattern. No left ventricle thrombus noted on this study. There is no mass noted in the left ventricle. RIGHT VENTRICLE The right ventricle is normal size. There is normal right ventricular wall thickness. The right ventricular systolic function is normal. ATRIA The left atrium size is normal. The right atrium size is normal. The interatrial septum is intact with no evidence for an atrial septal defect. AORTIC VALVE The aortic valve is normal in structure and function. No aortic regurgitation is present. There is no aortic valvular stenosis. There is no aortic valvular vegetation. MITRAL VALVE The mitral valve is normal in structure and function. There is no evidence of mitral valve prolapse. There is no mitral valve stenosis. There is no mitral valve regurgitation noted. TRICUSPID VALVE The tricuspid valve is normal in structure and function. There is no tricuspid valve regurgitation noted. There is no tricuspid valve prolapse or vegetation. There is no tricuspid valve stenosis. PULMONIC VALVE The pulmonary valve is normal in structure and function. There is no pulmonic valvular regurgitation. There is no pulmonic valvular stenosis. GREAT VESSELS The aortic root is normal in size. The IVC is normal in size and collapses >50% with inspiration. PERICARDIAL EFFUSION The pericardium appears normal. There is no pleural effusion. <Conclusion> The left ventricle is normal size. The left ventricular function is normal. The left ventricular ejection fraction is within the normal range. The Ejection Fraction is 55-60%.
[2016-10-19 12:41] VITALS: BP 148/86; PULSE 78; TEMP 98.5; O2SAT 97
== END 2016-10-19 14:00 | disposition home or self-care (01) | DRG 176 ==
LOC: H.ER 00:46 → H.ERHOLD 04:38 → H.TEL 13:14 → OBSVTOIN 10-18 05:46
PROVIDERS: ADMIT Internal Medicine; ATTEND Internal Medicine
DX: I26.99 Other pulmonary embolism without acute cor pulmonale (principal); J90 Pleural effusion, not elsewhere classified; K76.0 Fatty (change of) liver, not elsewhere classified; I82.431 Acute embolism and thrombosis of right popliteal vein; K59.00 Constipation, unspecified; K57.90 Diverticulosis of intestine, part unspecified, without perforation or abscess without bleeding